=== PATIENT | female | born 2000 | race Caucasian/White ===

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

== ENCOUNTER 2022-01-18 08:51 | Emergency (ER) | payer OTHER ==
[~2022-01-18] VITALS: Wt 77.1 kg
[2022-01-18] MEDS ORDERED: ZITHROMAX250 MG PO (09:27)
== END 2022-01-18 09:30 | disposition home or self-care (01) ==
LOC: ED 08:51
DX: H66.91 Otitis media, unspecified, right ear (principal); Z79.899 Other long term (current) drug therapy

== ENCOUNTER 2022-06-10 09:45 | Emergency (ER) | payer OTHER ==
[~2022-06-10] VITALS: Ht 147.3 cm; Wt 81.6 kg
[~2022-06-10 09:45] MED LIST changes: +ZITHROMAX250 MG PO
== END 2022-06-10 10:35 | disposition home or self-care (01) ==
LOC: ED 09:45
DX: S61.213A Laceration without foreign body of left middle finger without damage to nail, initial encounter (principal); Z79.899 Other long term (current) drug therapy; W45.8XXA Other foreign body or object entering through skin, initial encounter; Y93.89 Activity, other specified; Y92.89 Other specified places as the place of occurrence of the external cause; Y99.8 Other external cause status

== ENCOUNTER 2022-06-20 10:30 | Emergency (ER) | payer OTHER ==
[~2022-06-20] VITALS: Ht 147.3 cm; Wt 81.6 kg
[2022-06-20] MEDS ORDERED: PREDNISONE20 M1 PO (12:51)
== END 2022-06-20 13:03 | disposition home or self-care (01) ==
LOC: ED 10:30
DX: J06.9 Acute upper respiratory infection, unspecified (principal); Z20.822 Contact with and (suspected) exposure to COVID-19; J45.901 Unspecified asthma with (acute) exacerbation; Z79.899 Other long term (current) drug therapy

== ENCOUNTER 2022-12-30 00:23 | Emergency (ER) | payer OTHER ==
[~2022-12-30] VITALS: Ht 157.4 cm; Wt 68.0 kg
[~2022-12-30 00:23] MED LIST changes: +PREDNISONE20 M1 PO
[2022-12-30 01:01] LABS: BASO % 0.2 % (0.0-1.0); EOS # 0.1 10*3/uL (0.0-0.4); EOS % 0.4 % (1.0-4.0); LYMPH # 0.8 10*3/uL (1.3-4.4); LYMPH % 6.4 % (27.0-41.0); MEAN CELL VOLUME 79.7 fl (81.0-99.0); MEAN CORPUSCULAR HGB 25.9 pg (27.0-31.0); MEAN CORPUSCULAR HGB CONC 32.5 g/dl (33.0-37.0); MEAN PLATELET VOLUME 9.8 fl (9.6-12.3); MONO # 0.5 10*3/uL (0.1-1.0); NEUT # 11.3 10*3/uL (2.3-7.9); NEUT % 88.6 % (47.0-73.0); PLATELET COUNT AUTOMATED 274 10*3/uL (130-400); RED BLOOD COUNT 5.02 10*6/uL (4.10-5.10); RED CELL DISTRI WIDTH 15.4 % (0-14.5); WHITE BLOOD COUNT 12.8 10*3/uL (4.8-10.8)
[2022-12-30 01:27] LABS: ALKALINE PHOSPHATASE 118 U/L (46-116); BUN 8 mg/dl (9-23); CHLORIDE 101 mmol/L (98-107); POTASSIUM 3.5 mmol/L (3.4-5.1); SGPT/ALT 11 U/L (10-49)
[2022-12-30] MEDS ORDERED: ZITHROMAX250 MG PO (01:53)
[2022-12-30] MEDS ORDERED: PREDNISONE20 M1 PO (01:53)
== END 2022-12-30 02:11 | disposition home or self-care (01) ==
LOC: ED 00:23
PROVIDERS: Internal Medicine
DX: J06.9 Acute upper respiratory infection, unspecified (principal); Z20.822 Contact with and (suspected) exposure to COVID-19; Z79.899 Other long term (current) drug therapy

== ENCOUNTER 2025-07-11 16:36 | Emergency (ER) | payer OTHER ==
[~2025-07-11] VITALS: Ht 147.3 cm; Wt 65.8 kg
[2025-07-11] MEDS ORDERED: Ondansetron Hydrochloride 4 MG TAB SL ONE (17:55)
[2025-07-11] MEDS ORDERED: Acetaminophen/Oxycodone 5 MG/325 MG TABLET PO ONE (17:55)
[2025-07-11 18:08] LABS: BASO # 0.0 10*3/uL (0.0-0.1); BASO % 0.3 % (0.0-1.0); EOS # 0.3 10*3/uL (0.0-0.4); EOS % 2.5 % (1.0-4.0); MEAN CELL VOLUME 88.0 fl (81.0-99.0); MEAN CORPUSCULAR HGB 28.8 pg (27.0-31.0); MEAN PLATELET VOLUME 10.4 fl (9.6-12.3); MONO # 0.7 10*3/uL (0.1-1.0); MONO % 6.2 % (3.0-9.0); NEUT # 9.9 10*3/uL (2.3-7.9); NEUT % 82.7 % (47.0-73.0); NUCLEATED RED BLOOD CELL 0.0 % (0.0-0.0); NUCLEATED RED BLOOD CELL 0.0 10*3/uL (0.0-0.0); PLATELET COUNT AUTOMATED 186 10*3/uL (130-400); RED CELL DISTRI WIDTH 13.6 % (0-14.5)
[2025-07-11 18:40] LABS: BILIRUBIN Negative (Negative); BLOOD 3+ (Negative); CLARITY Turbid (Clear); COLOR Red (Yellow); KETONE Negative (Negative); LEUKO ESTERASE 2+ (Negative); NITRITE Negative (Negative); PH 8.0 (4.5-8.0); SPECIFIC GRAVITY 1.020 (1.001-1.030); UROBILINOGEN 1.0 E.U./dl (0.0-1.0)
[2025-07-11 18:45] LABS: RBC TNTC rbc/hpf (0-2)
[2025-07-11 18:46] LABS: WBC 21-30 wbc/hpf (0-5)
[2025-07-11 18:49] LABS: BUN 7 mg/dl (9-23); SGPT/ALT 11 U/L (5-49)
[2025-07-11] MEDS ORDERED: CEPHALEXIN500 M1 PO (19:33)
[2025-07-11] MEDS ORDERED: NAPROSYN500 MG PO (19:34)
[2025-07-11] MEDS ORDERED: CEPHALEXIN 500 MG CAP PO ONE (19:35)
== END 2025-07-11 19:34 | disposition home or self-care (01) ==
LOC: ED 16:36
PROVIDERS: Nurse Practitioner Family
DX: N39.0 Urinary tract infection, site not specified (principal); N93.8 Other specified abnormal uterine and vaginal bleeding; F41.9 Anxiety disorder, unspecified; F32.A Depression, unspecified